=== PATIENT | male | born 1995 | race Caucasian/White ===

== ENCOUNTER 2019-09-02 12:39 | Emergency (ER) | payer OTHER, SELFPAY ==
--- NOTE | 2019-09-02 12:49 | ED.URI ---
HPI - URI/Sore Throat General Chief Complaint: Upper Respiratory Infection Stated Complaint: sore throat/cough/congestion/runny nose Time Seen by Provider: 09/02/19 13:22 Source: patient and RN notes reviewed Mode of arrival: ambulatory Limitations: no limitations History of Present Illness HPI Narrative: 24-year-old male presents with concern for 1 week history of sore throat, swollen lymph nodes, body chills, dry cough, sinus pressure, sinus drainage, sinus pain. Denies take any [id number] medications. MD elicited complaint: cough and nasal congestion Related Data Home Medications Medication Instructions Recorded Confirmed sertraline 100 mg PO DAILY 05/16/19 09/02/19 diltiazem HCl 120 mg PO DAILY 09/02/19 09/02/19 Allergies Allergy/AdvReac Type Severity Reaction Status Date / Time No Known Allergies Allergy Verified 09/02/19 13:00 Review of Systems Review of Systems: Narrative: CONSTITUTIONAL: Reports malaise, chills, sweats, fatigue, or tactile fever. EYES: Denies visual changes, redness, or discharge. ENT: Reports rhinorrhea, congestion, sinus pain, and sore throat. CARDIOVASCULAR: Denies chest pain, palpitations, or edema. RESPIRATORY: Reports cough. Denies dyspnea. GASTROINTESTINAL: Denies abdominal pain, nausea, vomiting, diarrhea SKIN: Denies rash or itching. MUSCULOSKELETAL: Reports myalgia. NEUROLOGIC: Denies headache. All systems reviewed & are unremarkable except as noted in HPI and below PMFSH Comments At time of signature, agree with nursing past medical, surgical, social and family history. There is no relevant family history pertinent to the presenting complaint Exam Narrative: Exam Narrative: GENERAL: Well-appearing, well-nourished, and in no acute distress. HEAD: Normocephalic EYES: PERRLA, conjunctivae clear ENT: Nares clear, turbinates edematous and erythematous, sinus tenderness. Mucous membranes moist. TM pearly marshall with dull light reflex bilaterally; no tragal tenderness. Oropharynx mildly erythematous without lesions. Tonsils not enlarged and without exudate, no drooling, no hoarseness, no trismus, uvula midline. NECK: Supple. No lymphadenopathy CHEST: Clear to auscultation, breath sounds equal. No wheezing, rhonchi, rales, or stridor. No respiratory distress, speaks in full sentences. HEART: Regular rate and rhythm. No murmur heard. SKIN: Warm, dry, no rash. NEURO: Alert and oriented x3. PSYCH: Normal mood and affect Course Course Emergency Course: Patient is aware of diagnosis, understands and agrees to treatment plan. Anticipatory guidance given. Patient agrees to follow-up as directed and is aware of reasons to seek care at the emergency department. Portions of this record may have been created with voice recognition software Vital Signs Vital signs: Vital Signs Temperature 98.9 F 09/02/19 12:53 Pulse Rate 96 09/02/19 12:53 Respiratory Rate 18 09/02/19 12:53 Blood Pressure 139/77 09/02/19 12:53 Pulse Oximetry 99 09/02/19 12:53 Temperature 98.9 F 09/02/19 12:53 Pulse Rate 96 09/02/19 12:53 Respiratory Rate 18 09/02/19 12:53 Blood Pressure 139/77 09/02/19 12:53 Pulse Oximetry 99 09/02/19 12:53 Reviewed. Pt has been instructed to follow up with his primary care provider within the next week regarding his elevated blood pressure today. MDM - URI/Sore Throat MDM Narrative Medical decision making narrative: Differential diagnosis considered: Strep pharyngitis, allergic rhinitis, upper respiratory tract infection, sinusitis, rhinosinusitis, nasopharyngitis. viral pharyngitis, otitis media, otitis externa, pneumonia, bronchitis, viral cough syndrome, viral syndrome, and influenza. Exam findings show no acute concerns or changes; patient is non-toxic appearing and is in no distress. Patient is appropriate for outpatient treatment and follow-up. Lab Data Attestation: I reviewed the patient's lab results. Labs: Influenza A Screen N
[2019-09-02 12:53] VITALS: BP 139/77; PULSE 96; RESP 18; TEMP 37.2; O2SAT 99
== END 2019-09-02 13:38 | disposition home or self-care (01) ==
PROVIDERS: Emergency Provider Nurse Practitioner
DX: J32.9 Chronic sinusitis, unspecified (principal); J40 Bronchitis, not specified as acute or chronic; I10 Essential (primary) hypertension; F41.9 Anxiety disorder, unspecified; F32.9 Major depressive disorder, single episode, unspecified
CPT/HCPCS: 87081; 87804; 87880; 99213; G0463

== ENCOUNTER → 2019-09-21 09:48 | Outpatient (CLI) | payer OTHER, SELFPAY ==
--- NOTE | ~2019-09-21 | MR_ITS ---
EXAMINATION: MR brain/brain stem wo con DATE: 09/21/2019 10:54 INDICATION: Headache. TECHNIQUE: Magnetic resonance imaging (MRI) of the brain and brainstem was performed without intraven ous contrast. Sequences included sagittal and axial T1-weighted FSE, axial diffusion-weighted FS EPI, axial T2*-weighted GRE, axial T2-weighted FLAIR Propeller, and axial T2-weighted Propeller. Apparent diffusion coefficient (ADC) maps were created. COMPARISON: None. FINDINGS: There is no intracranial hemorrhage, acute infarction, or abnormal intracranial mass lesion . The ventricles are normal in size. There are mucous retention cysts in the maxillary sinuses. The m astoid air cells are normal. The orbits are normal. IMPRESSION: 1. Normal brain. Reviewed, dictated and finalized at location A. IMPRESSION: 1. Normal brain.
== END ==
PROVIDERS: PCP Emergency Medicine; Visit Provider Emergency Medicine
DX: R51 Headache (principal)
CPT/HCPCS: 70551

== ENCOUNTER 2020-01-09 10:51 | Outpatient (CLI) | payer OTHER, SELFPAY ==
--- NOTE | ~2020-01-09 | CT_ITS ---
EXAMINATION: CTA abdomen pelvis DATE: 01/09/2020 12:03 INDICATION: Other male erectile dysfunction TECHNIQUE: Computed tomographic angiography (CTA) of the abdomen and pelvis was performed without and with 100 mL Omnipaque-350 intravenous contrast. Maximum intensity projection 3D-reconstructions of t he aorta and other arteries were constructed by the technologist on a separate workstation. The dose- length product (DLP) was 2774.27 mGy-cm. Automated exposure control and iterative reconstruction tech nique were employed. COMPARISON: None. FINDINGS: The lung bases are clear. The heart size is normal. The liver is diffusely low in attenuation when compared with the spleen, consistent with hepatic stea tosis. The spleen, pancreas, gallbladder, and adrenal glands are normal. The kidneys are unremarkable . No pathologically enlarged abdominal or pelvic lymph nodes are identified. There is no free intrape ritoneal gas or evidence of bowel obstruction. The appendix is normal. The visualized osseous structu res are unremarkable. The aorta is normal without aneurysm or dissection. The celiac axis, superior mesenteric artery, and inferior mesenteric artery are normal. There are three right and one left renal arteries. The bilater al common iliac arteries, external iliac arteries, and internal iliac arteries are normal in appearan ce. The bilateral internal pudendal arteries are normal. The bulbous urethral arteries appear normal. The dorsal penile and cavernosal arteries are not definitely identified. IMPRESSION: 1. No CT correlate for the patient's symptoms. Dorsal penile and cavernosal arteries not definitely i dentified. Reviewed, dictated and finalized at location A. IMPRESSION: 1. No CT correlate for the patient's symptoms. Dorsal penile and cavernosal art eries not definitely identified.
[2020-01-09 11:58] LABS: Estimated Glomerular Filt Rate > 60
== END 2020-01-09 10:52 | disposition home or self-care (01) ==
PROVIDERS: PCP Emergency Medicine; Visit Provider Urology
DX: N52.8 Other male erectile dysfunction (principal)
CPT/HCPCS: 36415; 74174; Q9967

== ENCOUNTER 2020-04-05 09:27 | Emergency (ER) | payer OTHER, SELFPAY ==
--- NOTE | 2020-04-05 09:33 | ED.SKABFB ---
HPI - Skin/Abscess/Foreign Bdy General Chief complaint: Skin/Abscess/Foreign Body Stated complaint: rash Time Seen by Provider: 04/05/20 09:34 Source: patient and RN notes reviewed Mode of arrival: ambulatory Limitations: no limitations History of Present Illness HPI narrative: 24-year-old male who presents to [facility] with complaints of rash to groin region, left forearm, and above right eye in brow area. Patient states that he was in the [place] helping a friend and he developed this rash starting 4 days ago which is red vesicular in linear streaks with some clear fluid noted and very pruritic. Patient states that he has had previous history of poison derek dermatitis and usually has to get shot to clear it up. patient denies any difficulty with swallowing or any shortness of breath. Patient states that he has used derek dry and bleach to rash, has not taken any Benadryl for the itching. MD complaint: rash Onset (ago): day(s) (4) Tetanus up to date: yes Location: generalized Severity: moderate Severity scale (1-10): 6 Quality: burning and pruritic Pain Consistency: intermittent Relieving factors: none Exacerbating factors: movement Context: other (in [place]) Associated symptoms: itching Treatments prior to arrival: other (bleach and derek dry OTC) Related Data Home Medications Medication Instructions Recorded Confirmed sertraline 100 mg PO DAILY 04/05/20 04/05/20 Allergies Allergy/AdvReac Type Severity Reaction Status Date / Time No Known Allergies Allergy Verified 04/05/20 09:38 Review of Systems Review of Systems: Narrative: CONSTITUTIONAL: Denies fever, chills, or sweats. EYES: Denies visual changes, redness, or discharge. ENT: Denies rhinorrhea, congestion, sore throat, or otalgia. CARDIOVASCULAR: Denies chest pain, palpitations, or edema. RESPIRATORY: Denies cough or dyspnea. GASTROINTESTINAL: Denies abdominal pain, nausea, vomiting, or diarrhea. GENITOURINARY: Denies dysuria or hematuria. SKIN: Positive for rash and itching to groin and left forearm and right eye brow area. MUSCULOSKELETAL: Denies back pain, joint pain, or myalgia. NEUROLOGIC: Denies headache, numbness, or weakness. PSYCHIATRIC: Positive history anxiety or depression. All systems reviewed & are unremarkable except as noted in HPI and below PMFSH Past Medical History Medical History (Updated 04/05/20 @ 09:58 by Breanna Paredes NP) Anxiety and depression Hypertension Surgical History Surgical History (Updated 04/05/20 @ 09:59 by Breanna Paredes NP) History of surgical removal of pilonidal cyst Family History Family History (Updated 04/05/20 @ 10:23 by Breanna Paredes NP) Other Hypertension Social History Social History (Updated 04/05/20 @ 10:01 by Breanna Paredes NP) Smoking status: Never smoker Alcohol intake: current Substance use: never Living arrangements: with family Gender identity (if verbalized by the patient): Male Comments At time of signature, agree with nursing past medical, surgical, social history. There is no relevant family history pertinent to the presenting complaint Exam Narrative: Exam Narrative: GENERAL: Well-appearing, well-nourished, and in no acute distress. HEAD: Normocephalic, atraumatic. EYES: PERRLA and EOMI. small area of redness with vesicle in brow line above right eye ENT: Nares clear, no rhinorrhea or epistaxis. Mucous membranes moist.TM's normal with good light reflex, throat pink with no swelling or tonsil enlargement. NECK: Supple. no lymphadenopathy CHEST: Clear to auscultation. No respiratory distress.SAO2 99% on room air HEART: Regular rate and rhythm. No murmur heard. Normal peripheral pulses. ABDOMEN: Soft, nontender, nondistended, normal active bowel sounds. EXTREMITIES: Normal range of motion. No edema. SKIN: Warm, dry, pruritic red vesicular rash noted to groin region, left forearm and also above right eye in brow area after being in [place] recently. some clear fl
[2020-04-05 09:35] VITALS: BP 144/70; PULSE 91; RESP 16; TEMP 36.3; O2SAT 99
[2020-04-05] MEDS: methylPREDNISolone ACETATE 80 MG/ML VIAL IM (09:54)
== END 2020-04-05 10:09 | disposition home or self-care (01) ==
PROVIDERS: Emergency Provider Registered Nurse; PCP Emergency Medicine
DX: L23.7 Allergic contact dermatitis due to plants, except food (principal); F41.9 Anxiety disorder, unspecified; F32.9 Major depressive disorder, single episode, unspecified; I10 Essential (primary) hypertension
CPT/HCPCS: 96372; 99213; G0463; J1040

== ENCOUNTER 2020-04-08 16:55 | Emergency (ER) | payer OTHER, SELFPAY ==
--- NOTE | 2020-04-08 16:56 | ED.URI ---
HPI - URI/Sore Throat General Chief Complaint: Upper Respiratory Infection Stated Complaint: cough/mucus/lt ear pain Time Seen by Provider: 04/08/20 16:56 Source: patient and RN notes reviewed History of Present Illness HPI Narrative: Patient is a 24-year-old male who presents the urgent care with complaints of productive brown cough/mucus, left ear pain, and rhinorrhea. Patient states it started approximately 2 days ago and he has been taking Claritin and has taken 1 dose of Tylenol. Patient denies of any known fever, nausea, vomiting, sinus pressure or pain. States that he has had 2 bloody noses in the past 2 days but that is typical for his normal sinus issues . Patient denies of any other acute complaints. No acute distress noted. Patient aware of the plan of care. Some parts of this dictation were generated by voice recognition software and may contain typographical and/or grammatical inaccuracies. Related Data Home Medications Medication Instructions Recorded Confirmed sertraline 100 mg PO DAILY 04/05/20 04/08/20 Allergies Allergy/AdvReac Type Severity Reaction Status Date / Time No Known Allergies Allergy Verified 04/08/20 17:02 Review of Systems Review of Systems: Narrative: CONSTITUTIONAL: Denies fever, chills, or sweats. EYES: Denies visual changes, redness, or discharge. ENT: Reports of bloody noses, rhinorrhea, left otalgia CARDIOVASCULAR: Denies chest pain, palpitations, or edema. RESPIRATORY: Reports a productive brown cough without dyspnea GASTROINTESTINAL: Denies abdominal pain, nausea, vomiting, or diarrhea. GENITOURINARY: Denies dysuria or hematuria. SKIN: Denies rash or itching. MUSCULOSKELETAL: Denies back pain, joint pain, or myalgia. NEUROLOGIC: Denies headache, numbness, or weakness. All other systems reviewed are negative, except as documented in HPI. [facility] Past Medical History Medical History (Updated 04/08/20 @ 17:07 by LYNDSEY Valenzuela) Anxiety and depression Hypertension Surgical History Surgical History (Updated 04/05/20 @ 09:59 by Breanna Paredes NP) History of surgical removal of pilonidal cyst Family History Family History (Updated 04/05/20 @ 10:23 by Breanna Paredes NP) Other Hypertension Social History Social History (Updated 04/05/20 @ 10:01 by Breanna Praedes NP) Smoking status: Never smoker Alcohol intake: current Substance use: never Gender identity (if verbalized by the patient): Male Comments At the time of my signature, I reviewed and agree with the nursing past medical, surgical, social, and family history. There is no relevant family history pertinent to the patient complaint. Exam Narrative: Exam Narrative: GENERAL: This is a well-nourished, well-developed patient, in no apparent distress. HEAD: normocephalic, atraumatic. EYES: PERRL. Sclera clear/white. Vision is grossly intact. EARS: External ears normal, auditory canals clear and without drainage, TMs normal without perforation. Hearing grossly intact. NOSE: External nose normal with no obvious nasal discharge, nares without redness, no rhinorrhea. THROAT: Mucous membranes moist, posterior pharynx clear. Mild postnasal drainage NECK: Neck supple CARDIOVASCULAR: Regular rate and rhythm without murmurs, gallops, or rubs. RESPIRATORY: Clear to auscultation. Breath sounds equal bilaterally. No wheezes, rales, or rhonchi. GASTROINTESTINAL: Abdomen soft, non-tender, nondistended. Bowel sounds are active. No hepato-splenomegaly, or palpable masses. No guarding. SKIN: 8 x 8cm irregular erythemic dermatitis noted to the left antecubital fossa. intact with no suspicious lesions or rash, good texture and turgor. NEURO: awake, alert, and oriented to person, place and time. There were no obvious focal neurologic abnormalities. EXTREMITIES: No clubbing, cyanosis, or edema. Course Vital Signs Vital signs: Vital Signs Temperature 96.8 F L 04/08/20 17:00 Pulse Rate 113 H
[2020-04-08 17:00] VITALS: BP 163/105; PULSE 113; RESP 16; TEMP 36; O2SAT 99
== END 2020-04-08 17:13 | disposition home or self-care (01) ==
PROVIDERS: Emergency Provider Nurse Practitioner Family; PCP Emergency Medicine
DX: J00 Acute nasopharyngitis [common cold] (principal); J01.90 Acute sinusitis, unspecified; I10 Essential (primary) hypertension; F41.9 Anxiety disorder, unspecified; F32.9 Major depressive disorder, single episode, unspecified
CPT/HCPCS: 99213; G0463

== ENCOUNTER 2020-12-14 19:36 | Emergency (ER) | payer OTHER, SELFPAY ==
--- NOTE | 2020-12-14 19:40 | ED.GENADULT ---
HPI - General Adult General Chief complaint: Upper Respiratory Infection Stated complaint: cough/mucus/swollen glands Time Seen by Provider: 12/14/20 19:40 Source: patient Mode of arrival: ambulatory Limitations: no limitations History of Present Illness HPI narrative: 25-year-old male patient presents to the [facility] with complaints of upper respiratory infection symptoms for the past 5 days. Patient states he has been feeling very fatigued, coughing up brown sputum in the morning, having swollen lymph nodes that are very tender to the right side of his neck and has been feeling feverish but does not know if he has had a fever. Patient states he has been waking up in the morning drenched in sweat and having night sweats. Patient does have history of hypertension and states that he has been monitored for tachycardia before in the past. Patient states he did get his first Covid vaccine but has not been a full 2 weeks yet. Patient states he does take blood pressure medications and states he just saw his primary doctor last week and they refilled his medications on but he has not yet picked them up. Denies chest pain, shortness of breath, nausea vomiting or diarrhea. Related Data Home Medications Medication Instructions Recorded Confirmed sertraline mg 12/14/20 Allergies Allergy/AdvReac Type Severity Reaction Status Date / Time No Known Allergies Allergy Unverified 04/30/20 14:15 Review of Systems Review of Systems: Narrative: CONSTITUTIONAL: Denies fever, positive chills, and sweats. EYES: Denies visual changes, redness, or discharge. ENT: Denies rhinorrhea, congestion, sore throat, or otalgia. CARDIOVASCULAR: Denies chest pain, palpitations, or edema. RESPIRATORY: Positive cough, denies dyspnea. GASTROINTESTINAL: Denies abdominal pain, nausea, vomiting, or diarrhea. GENITOURINARY: Denies dysuria or hematuria. SKIN: Denies rash or itching. MUSCULOSKELETAL: Denies back pain, joint pain, or myalgia. NEUROLOGIC: Denies headache, numbness, or weakness. Positive fatigue PSYCHIATRIC: Denies anxiety or depression. [facility] Past Medical History Medical History Anxiety and depression Hypertension Surgical History Surgical History History of surgical removal of pilonidal cyst Family History Family History Other Hypertension Comments At the time of my signature I agree with nursing past medical history, surgical, social, and family history. There is no relevant family history pertinent to the presenting complaint. Exam Narrative: Exam Narrative: GENERAL: ill-appearing, well-nourished, and in no acute distress. HEAD: Normocephalic, atraumatic. EYES: PERRLA and EOMI. ENT: Nares clear, no rhinorrhea or epistaxis. Mucous membranes moist. Posterior pharynx with bilateral tonsil enlargement, erythema and exudates noted to bilateral sides as well as postnasal drip present. Bilateral TMs are clear with no erythema or foreign bodies in the canal. NECK: Supple. Patient has lymphadenopathy with tenderness noted to the left lateral lymph nodes of the neck. Patient does have pain when turning his head towards the left and right sides. CHEST: Clear to auscultation. No respiratory distress. HEART: Heart rate is tachycardic at this time. No murmur heard. Normal peripheral pulses. ABDOMEN: Soft, nontender, nondistended, normal active bowel sounds. EXTREMITIES: Normal range of motion. No edema. SKIN: Warm, diaphoretic, no rash. NEURO: No focal deficits. Alert and oriented x3. Course Reevaluation(s) Reevaluation #1: After discussing issues with his blood pressure patient did state that he has been off his blood pressure medication now for over a year. Patient states that he did see his primary doctor last week and was put on diltiazem for his blood pressure whtejinder
[2020-12-14 19:45] VITALS: BP 149/123; PULSE 128; RESP 16; TEMP 38; O2SAT 99
[2020-12-14 19:47] VITALS: BP 149/123; PULSE 128; RESP 16; TEMP 38; O2SAT 99
--- NOTE | 2020-12-14 20:06 | PC.NURSE ---
Unable to scan tylonol. Was ordered as a scheduled med by provider. She is unable to change the order.
[2020-12-14 20:25] VITALS: BP 149/97
[2020-12-14 20:29] VITALS: TEMP 37.6
[2020-12-16 18:16] LABS: SARS-CoV-2 RNA PCR Negative
== END 2020-12-14 20:33 | disposition home or self-care (01) ==
PROVIDERS: Emergency Provider Nurse Practitioner Family
DX: J06.9 Acute upper respiratory infection, unspecified (principal); Z20.822 Contact with and (suspected) exposure to COVID-19; I10 Essential (primary) hypertension
CPT/HCPCS: 36416; 86308; 87081; 87426; 87804; 87880; 99213; C9803; G0463; U0003; U0005

== ENCOUNTER 2020-12-15 01:57 | Emergency (ER) | payer OTHER, SELFPAY ==
[2020-12-15] VITALS (8 sets, daily range): BP systolic 133–163; BP diastolic 70–108; PULSE 95–127; RESP 15–22; TEMP 37.3; O2SAT 96–98
--- NOTE | ~2020-12-15 | CT_ITS ---
EXAMINATION: CT soft tissue neck w con DATE: 12/15/2020 03:12 INDICATION: Neck swelling and pain TECHNIQUE: Computed tomography (CT) of the neck was performed with 75 mL Omnipaque-350 intravenous co ntrast. The dose-length product was 603.03 mGy-cm.. Automated exposure control and iterative reconstr uction technique were employed. COMPARISON: No prior studies for comparison. FINDINGS: There is posterior nasal adenoidal hypertrophy. Moderate enlargement of the tonsils and lesley noids. There are benign left tonsillar calcifications. Moderate narrowing of the upper oral pharyngea l airway. No peritonsillar abscess. Epiglottis intact. Trachea and upper lung alex are unremarkable . No retropharyngeal fluid or gas. There are bilateral small and enlarged jugulodigastric chain lymph nodes with dominant enlarged lymph nodes at the angle of mandible on the right measuring 2.6 cm. Tra ce fluid seen along the lower margin of the sternocleidomastoid muscle also extending into the Submandibular space. No acute osseous abnormality. No significant vascular abnormality. Intracranial structures are unremarkable. There are mucous retention cysts in the maxillary sinuses. IMPRESSION: 1. Enlarged right jugulodigastric chain lymph node measuring 2.6 cm, most likely reactive. 2: Enlargement of the tonsils and adenoids with moderate narrowing of the oropharyngeal airway, consi stent with infectious/inflammatory process. No peritonsillar abscess. Reviewed, dictated and finalized at location A. IMPRESSION: 1. Enlarged right jugulodigastric chain lymph node measuring 2.6 cm, most likel y reactive. 2: Enlargement of the tonsils and adenoids with moderate narrowing of the oroph aryngeal airway, consistent with infectious/inflammatory process. No peritonsil lar abscess.
--- NOTE | 2020-12-15 02:10 | ED.FEVER ---
HPI - Fever General Chief Complaint: Unspecified Stated Complaint: swollen lymph nodes, fever Time Seen by Provider: 12/15/20 02:10 History of Present Illness HPI Narrative: 25 yo male w/ h/o sinusitis presents to the ED for fever and neck pain. He has had pain in the left side of the neck for a few days. Developed swollen fever and lymph nodes on that side of the neck today. Pain is worse with swallowing. Seen at urgent care today and had negative strep, mono, and COVID testing. Related Data Home Medications Medication Instructions Recorded Confirmed sertraline 100 mg PO DAILY 05/16/19 09/02/19 Allergies Allergy/AdvReac Type Severity Reaction Status Date / Time No Known Allergies Allergy Verified 12/15/20 02:17 Review of Systems Review of Systems: All systems reviewed & are unremarkable except as noted in HPI and below Eyes: Eyes: Denies change in vision ENT: Denies dizziness and Reports nasal congestion Cardiovascular: Cardiovascular: Denies chest pain Respiratory: Respiratory: Denies cough and Denies dyspnea Gastrointestinal: Gastrointestinal: Denies abdominal pain and Denies nausea Neurologic: Denies dizziness and Denies weakness [facility] Past Medical History Medical History Anxiety and depression Anxiety and depression Hypertension Hypertension Surgical History Surgical History History of surgical removal of pilonidal cyst History of surgical removal of pilonidal cyst Social History Social History Smoking status: Never smoker Alcohol intake: current Substance use: never Gender identity (if verbalized by the patient): Male Exam Const: General: healthy appearing, no acute distress and alert Orientation/consciousness: patient oriented x3 HENMT: Head: normal to inspection Ears: TM's normal bilaterally Face and sinus: sinus tenderness maxillary Mouth: Yes Normal oral and palatal mucosa present Teeth and gingiva: dentition normal Throat: abnormal tonsil bilateral hypertrophy Eyes: Conjunctivae: conjunctivae normal Pupils: Equal, round and reactive pupils present EOM: EOMs intact bilaterally Neck: Neck: normal visual inspection and lymphadenopathy Other: right auricular, anterior cervical Resp: Effort & Inspection: normal respiratory effort Auscultation: clear to auscultation bilaterally, no rales, no rhonchi and no wheezes Cardio: Jugular venous distension: no JVD Rate: regular rate Rhythm: regular rhythm Heart sounds: no murmurs Skin: General skin exam: normal color Neuro: General: patient oriented x3 and moves all extremities Speech: normal speech Extrem: General: no edema Psych: Appearance: well kempt Affect: normal affect Course Vital Signs Vital signs: Vital Signs Temperature 37.3 C 12/15/20 02:10 Pulse Rate 127 H 12/15/20 02:10 Respiratory Rate 20 12/15/20 02:10 Blood Pressure 163/108 H 12/15/20 02:10 Pulse Oximetry 96 12/15/20 02:10 Temperature 37.3 C 12/15/20 02:10 Pulse Rate 95 12/15/20 05:55 Respiratory Rate 22 H 12/15/20 05:55 Blood Pressure 159/92 H 12/15/20 05:55 Pulse Oximetry 97 12/15/20 05:55 MDM - Fever MDM Narrative Medical decision making narrative: History of recurrent sinusitis combined with current symptoms and previous negative work-up suggests that this could be a source for his symptoms. Medical Records Attestation: I reviewed the patient's medical records. Lab Data Attestation: I reviewed the patient's lab results. Result diagrams: 12/15/20 02:26 12/15/20 02:26 Labs: Lab Results 12/15/20 12/15/20 Range/Units 02:26 02:26 WBC 12.7 H (4.5-10.0) K/mm3 RBC 5.42 (4.6-6.20) M/mm3 Hgb 15.1 (14.0-18.0) g/dL Hct 46.3 (42.0-52.0) % MCV 85.4 (80-100) fl MCH 27.9 (26-34) pg MCHC
[2020-12-15 02:42] LABS: Anion Gap 11 mmol/L (8-16); Blood Urea Nitrogen 17 mg/dL (9-20); Calcium 9.3 mg/dL (8.4-10.2); Carbon Dioxide 26 mmol/L (22-30); Chloride 103 mmol/L (98-107); Estimated CRCL calculation 107 ml/min; Estimated Glomerular Filt Rate > 60; Glucose 112 mg/dL (75-110); Potassium 3.9 mmol/L (3.4-5.0); Sodium 140 mmol/L (137-145)
[2020-12-15 02:43] LABS: Basophils Absolute Auto 0.1 K/mm3 (0.0-0.1); Basophils Percent Auto 0.5 % (0.2-1.2); Eosinophils Absolute Auto 0.1 K/mm3 (0-0.3); Eosinophils Percent Auto 0.6 % (0-4.4); Hematocrit 46.3 % (42.0-52.0); Hemoglobin 15.1 g/dL (14.0-18.0); Immature Granulocyte Absolute 0.12 K/mm3 (0.00-0.031); Immature Granulocyte Percent A 0.9 % (0-0.5); Lymphocytes Absolute Auto 2.13 K/mm3 (0.9-3.2); Lymphocytes Percent Auto 16.7 % (18.3-44.2); Mean Corpuscular HGB Conc 32.6 g/dl (32-36); Mean Corpuscular Hemoglobin 27.9 pg (26-34); Mean Corpuscular Volume 85.4 fl (80-100); Mean Platelet Volume 9.2 fl (7.4-10.4); Monocytes Absolute Auto 1.2 K/mm3 (0.1-0.6); Monocytes Percent Auto 9.2 % (2.6-8.5); Neutrophils Absolute Auto 9.2 K/mm3 (1.3-6.7); Neutrophils Percent Auto 72.1 % (45.5-73.1); Platelet Count Result 299 k/mm3 (150-375); Red Blood Count 5.42 M/mm3 (4.6-6.20); Red Cell Distribution Width 12.6 % (11.5-14.5); White Blood Count 12.7 K/mm3 (4.5-10.0)
[2020-12-15] MEDS: SODIUM CHLORIDE 0.9% IV 1,000 ML 999 ML IV CONT (02:50)
[2020-12-15] MEDS: DEXAMETHASONE SOD PHOS INJ 4 MG/ML VIAL 10 MG IV PUSH (02:52)
--- NOTE | 2020-12-15 02:58 | PC.NURSE ---
Pt to imaging at this time.
[2020-12-15] MEDS: KETOROLAC 30 MG/ML VIAL (*BKC) IV PUSH (03:18)
[2020-12-15] MEDS: AMPICILLIN SULB 3 GM/NS 100 ML 3 GM/100 ML VIAL IVPB (03:21)
== END 2020-12-15 05:57 | disposition home or self-care (01) ==
PROVIDERS: Emergency Provider Emergency Medicine
DX: J32.9 Chronic sinusitis, unspecified (principal); I10 Essential (primary) hypertension; F41.9 Anxiety disorder, unspecified; F32.9 Major depressive disorder, single episode, unspecified
CPT/HCPCS: 36415; 70491; 80048; 85025; 96361; 96365; 96375; 99284; J0295; J1100; J1885; J7030; Q9967

== ENCOUNTER 2021-04-28 12:34 | Emergency (ER) | payer OTHER, SELFPAY ==
--- NOTE | 2021-04-28 12:43 | ED.HA ---
HPI - Headache General Chief Complaint: Headache Stated Complaint: parks/eye pain Time Seen by Provider: 04/28/21 12:35 Source: patient, RN notes reviewed and old records reviewed Mode of arrival: ambulatory Limitations: no limitations History of Present Illness HPI Narrative: 25-year-old male presents to the [facility] with the worst headache of my life. Patient states that the headache on the right side started last night. Has taken Tylenol. Has episodes of nausea and vomiting today. States that changing of positions makes the headache worse describes it as a sharp throbbing pain from his eyeball to midline t top of headl. Also states intermittent blurry vision, right side only. No loss of vision. Denies any trauma. no neurologic deficits. No sinus tenderness. Denies any sinus symptoms or allergy symptoms. No sore throats. Has history of anxiety depression and is currently medicated. MD elicited complaint: headache Related Data Home Medications Medication Instructions Recorded Confirmed sertraline 100 mg PO DAILY 05/16/19 09/02/19 Allergies Allergy/AdvReac Type Severity Reaction Status Date / Time No Known Allergies Allergy Verified 12/15/20 02:17 Review of Systems Review of Systems: All systems reviewed & are unremarkable except as noted in HPI and below Constitutional: Constitutional: Reports no additional constitutional complaints, Denies chills and Denies fever(s) Eyes: Eyes: Reports as per HPI and Reports change in vision (Blurry right eye) ENT: Reports system reviewed and no additional complaints, except as documented, Denies dysphagia, Denies vertigo, Denies dizziness, Denies nasal congestion and Denies sore throat Respiratory: Respiratory: Reports no additional respiratory complaints, Denies cough, Denies dyspnea and Denies wheezing Gastrointestinal: Gastrointestinal: Reports as per HPI, Denies abdominal pain, Reports nausea and Reports vomiting Musculoskeletal: Musculoskeletal: Reports no additional musculoskeletal complaints Integumentary/Breasts: Skin/Breast: Reports system reviewed and no additional complaints, except as docu Neurologic: Reports as per HPI, Denies confusion, Denies vertigo, Denies dizziness, Denies syncope, Reports headache(s), Denies focal weakness, Denies numbness and Denies weakness Psychiatric: Psychiatric: Reports no additional psychiatric complaints Allergic/Immunologic: Allergic/Immunologic: Reports no additional allergic/immunologic complaints PMFSH Past Medical History Medical History Anxiety and depression Anxiety and depression Hypertension Hypertension Surgical History Surgical History History of surgical removal of pilonidal cyst History of surgical removal of pilonidal cyst Social History Social History Smoking status: Never smoker Alcohol intake: current Substance use: never Gender identity (if verbalized by the patient): Male Comments At the time of my signature, I reviewed and agree with the nursing past medical, surgical, social, and family history. There is no relevant family history pertinent to the patient complaint. Exam Const: General: healthy appearing, no acute distress and alert Nutritional Appearance: well nourished Orientation/consciousness: patient oriented x3 Limitations: no limitations HENMT: Head: normal to inspection Ears: external ears normal, TM's normal bilaterally and EAC's normal Eyes: Conjunctivae: conjunctivae normal Pupils: Equal, round and reactive pupils present Direct Ophthalmoscopy: no photophobia Neck: Neck: normal visual inspection, no lymphadenopathy and no meningeal signs Chest: Chest palpation & inspection: normal inspection of the chest Resp: Effort & Inspection: normal respiratory effort and no use of accessory muscles Auscultation: clear to auscultatio
[2021-04-28 12:44] VITALS: BP 176/114; PULSE 99; RESP 16; TEMP 36.1; O2SAT 99
== END 2021-04-28 13:01 | disposition short-term general hospital (02) ==
PROVIDERS: Emergency Provider Nurse Practitioner
DX: R51.9 Headache, unspecified (principal); I10 Essential (primary) hypertension; F41.9 Anxiety disorder, unspecified; F32.9 Major depressive disorder, single episode, unspecified
CPT/HCPCS: 99213; G0463

== ENCOUNTER 2021-04-28 13:16 | Emergency (ER) | payer OTHER, SELFPAY ==
--- NOTE | ~2021-04-28 | CT_ITS ---
EXAMINATION: CT brain wo con DATE: 04/28/2021 14:11 INDICATION: Headache. TECHNIQUE: Computed tomography (CT) of the head was performed without intravenous contrast. The dose- length product was 605.33 mGy-cm. Automated exposure control and iterative reconstruction technique w ere employed. COMPARISON: None FINDINGS: No acute intracranial hemorrhage, infarction, mass or mass effect. No ventriculomegaly or m idline shift. Basilar cisterns are patent. There are mucous retention cyst of the maxillary sinuses, partially visualized. Mastoids are pneumatized. No depressed skull fractures. IMPRESSION: 1. No acute intracranial abnormality. Reviewed, dictated and finalized at location [facility]
[2021-04-28 13:29] VITALS: BP 169/98; PULSE 94; RESP 16; TEMP 36.1; O2SAT 97
--- NOTE | 2021-04-28 13:59 | ECG_ITS ---
Measurements Intervals [place] Rate: 89 P: 52 VA: 154 QRS: 5 QRSD: 90 T: 11 QT: 368 QTc: 450 Interpretive Statements SINUS RHYTHM POSSIBLE LEFT ATRIAL ENLARGEMENT INCOMPLETE RIGHT BUNDLE BRANCH BLOCK BORDERLINE T WAVE ABNORMALITY- INFERIOR LEADS BASELINE WANDER- V3 BORDERLINE ECG Electronically Signed On 04-28-2021 14:47:17 SECURITY ASSISTANT by Kiran Coto D.O.
[2021-04-28 14:00] LABS: Add Urine Microscopic? NO; Appearance Urine Clear (Clear); Bilirubin Urine Negative (Negative); Blood Urine Negative (Negative); Color Urine Yellow (Yellow); Glucose Urine UA Negative (Negative); Ketones Urine Negative (Negative); Leukocyte Esterase Ur Negative LEU/UL (Negative); Nitrate Urine Negative (Negative); Protein Urine Negative (Negative); Specific Grav Ur 1.023 (1.001-1.035); Urobilinogen Urine Negative mg/dL (<2.0)
--- NOTE | 2021-04-28 14:01 | ED.HA ---
HPI - Headache General Chief Complaint: Headache Stated Complaint: TYLER X1D Time Seen by Provider: 04/28/21 13:43 Source: patient and RN notes reviewed Mode of arrival: ambulatory Limitations: no limitations History of Present Illness HPI Narrative: This is a 25 year old male with history of hypertension who presents for evaluation of acute headache. He denies mild headache last night. He reports pain located to the top of his head and then he developed throbbing pain to his right eye. He went to sleep last night thinking the pain would resolve. This morning he woke up and he still continued to have pain. He reports he had nausea and blurred vision so he took Tylenol this morning and he went back to sleep. He woke up at a noon and his developed severe lightening pain . He also reports having emesis x 2. His headache was severe at that time but currently he rates his pain as 4/10. He denies history of migraines or headache. He denies blurred vision but he does have some light sensitivity. He denies associated neck pain, fever, chills, focal weakness, numbness or tingling. He was referred to [facility] for further evaluation. Related Data Home Medications Medication Instructions Recorded Confirmed sertraline 100 mg PO DAILY 05/16/19 04/28/21 Allergies Allergy/AdvReac Type Severity Reaction Status Date / Time No Known Allergies Allergy Verified 04/28/21 13:39 Review of Systems Review of Systems: All systems reviewed & are unremarkable except as noted in HPI and below PMFSH Past Medical History Medical History Anxiety and depression Anxiety and depression Hypertension Hypertension Surgical History Surgical History History of surgical removal of pilonidal cyst History of surgical removal of pilonidal cyst Social History Social History Smoking status: Never smoker Alcohol intake: current Substance use: never Gender identity (if verbalized by the patient): Male Exam Const: General: no acute distress and alert Orientation/consciousness: patient oriented x3 HENMT: Head: normocephalic and atraumatic General nose exam: Normal external nose present, Normal nares present and No nasal polyps present Face and sinus: normal facial exam, sinuses nontender and face symmetric Mouth: Yes Normal oral and palatal mucosa present, Yes lip normal, Yes oropharynx normal and Yes moist mucous membranes Throat: posterior oropharynx normal, tonsils normal and uvula midline Eyes: Pupils: Equal, round and reactive pupils present EOM: EOMs intact bilaterally Neck: Neck: normal visual inspection, no lymphadenopathy and no meningeal signs Chest: Chest palpation & inspection: normal inspection of the chest Resp: Effort & Inspection: normal respiratory effort and no retractions Auscultation: clear to auscultation bilaterally Cardio: Rate: regular rate Rhythm: regular rhythm Heart sounds: no murmurs GI: GI Palp: Yes Soft to palpation, No Tenderness to palpation present (GI) and No Guarding due to palpation present (GI) Auscultation: normal bowel sounds Neuro: General: patient oriented x3, moves all extremities, no meningeal signs, no focal motor deficits and CN's II-XI intact bilaterally Cranial nerves: Yes Nystagmus not present Speech: normal speech Gait exam (Neuro): Normal gait present Psych: Mental Status: mental status grossly normal Affect: normal affect Course Reevaluation(s) Reevaluation #1: PAtient reports that his headache has resolved after IVF, reglan and benadryl. His CT and labs were unremarkable. He does not meningeal signs. He will start taking his blood pressure medication and follow up with pcp Date: 04/28/21 Time: 15:54 Vital Signs Vital signs: Vital Signs Temperature 97.0 F L 04/28/21 13:29 Pulse Rate 94 04/28
[2021-04-28] MEDS: SODIUM CHLORIDE 0.9% IV 1,000 ML 999 ML IV CONT (14:24)
[2021-04-28 14:25] LABS: Basophils Absolute Auto 0.1 K/mm3 (0.0-0.1); Basophils Percent Auto 0.6 % (0.2-1.2); Eosinophils Absolute Auto 0.2 K/mm3 (0-0.3); Eosinophils Percent Auto 1.8 % (0-4.4); Hematocrit 47.3 % (42.0-52.0); Hemoglobin 16.2 g/dL (14.0-18.0); Immature Granulocyte Percent A 1.1 % (0-0.5); Lymphocytes Percent Auto 22.7 % (18.3-44.2); Mean Corpuscular HGB Conc 34.2 g/dl (32-36); Mean Corpuscular Volume 84.8 fl (80-100); Mean Platelet Volume 9.2 fl (7.4-10.4); Monocytes Absolute Auto 0.6 K/mm3 (0.1-0.6); Monocytes Percent Auto 6.8 % (2.6-8.5); Neutrophils Absolute Auto 6.2 K/mm3 (1.3-6.7); Platelet Count Result 348 k/mm3 (150-375); Red Blood Count 5.58 M/mm3 (4.6-6.20); Red Cell Distribution Width 12.6 % (11.5-14.5); White Blood Count 9.3 K/mm3 (4.5-10.0)
[2021-04-28] MEDS: diphenhydrAMINE HCl INJ 50 MG/ML VIAL 25 MG IV PUSH (14:25)
[2021-04-28] MEDS: METOCLOPRAMIDE HCL INJ 10 MG/2 ML VIAL IV PUSH (14:25)
[2021-04-28 14:34] LABS: Partial Thromboplastin Time 24.8 SECONDS (22.3-36.8); Prothrombin Time 12.6 Seconds (11.1-14.7)
[2021-04-28 14:39] LABS: Alanine Aminotransferase 65 U/L (4-50); Albumin Level 4.7 g/dL (3.5-5.1); Alkaline Phosphatase 91 U/L (38-126); Anion Gap 13 mmol/L (8-16); Aspartate Amino Transferase 47 U/L (17-59); Bilirubin,Total 1.1 mg/dL (0.2-1.3); Blood Urea Nitrogen 16 mg/dL (9-20); Calcium 9.5 mg/dL (8.4-10.2); Carbon Dioxide 22 mmol/L (22-30); Chloride 103 mmol/L (98-107); Estimated CRCL calculation 147 ml/min; Estimated Glomerular Filt Rate > 60; Glucose 93 mg/dL (65-110); Potassium 4.1 mmol/L (3.4-5.0); Sodium 138 mmol/L (137-145)
[2021-04-28 16:04] VITALS: BP 127/80; PULSE 78; RESP 18; O2SAT 99
== END 2021-04-28 16:05 | disposition home or self-care (01) ==
PROVIDERS: Emergency Medicine; Emergency Provider General Practice
DX: R51.9 Headache, unspecified (principal); I10 Essential (primary) hypertension
CPT/HCPCS: 36415; 70450; 80053; 81003; 85025; 85610; 85730; 93005; 96361; 96365; 96375; 99284; J0131; J1200; J2765; J7030

== ENCOUNTER 2021-05-19 16:14 | Emergency (ER) | payer OTHER, SELFPAY ==
[2021-05-19 16:20] VITALS: BP 152/109; PULSE 105; RESP 16; TEMP 36.3; O2SAT 99
--- NOTE | 2021-05-19 17:22 | ED.SKABFB ---
HPI - Skin/Abscess/Foreign Bdy General Chief complaint: Skin/Abscess/Foreign Body Stated complaint: rash Source: patient and RN notes reviewed Limitations: no limitations History of Present Illness HPI narrative: The patient, previously healthy, presents with skin eruption. Patient states he has a 1 to 2-day worsening of nearly one month long history of intermittent pink, definitely itchy eruption on trunk and extremities. Patient states the eruption is migratory, raised,and pictures of rash seem to be urticarial; and he demonstrates some dermographism. Symptoms are mild, sometimes involve palate and lower neck, and persistent despite OTC preparations like Benadryl, and try to eliminate possible triggers. Patient advised to follow-up with specialist allergy or tack picker. Related Data Home Medications Medication Instructions Recorded Confirmed diltiazem HCl 120 mg PO DAILY 05/19/21 05/19/21 sertraline 100 mg PO DAILY 05/19/21 05/19/21 Allergies Allergy/AdvReac Type Severity Reaction Status Date / Time No Known Allergies Allergy Unverified 04/30/20 14:15 Review of Systems Review of Systems: General/Constitutional: No weight loss,fever Eyes: N0: Redness,discharge Ears/Nose/Throat: No: Epistaxis,ear discharge Respiratory: Denies: Hemoptysis Gastrointestinal: No Vomiting, Bleeding-rectal Skin: No Lumps, REPORTS eruption Neurologic: No Focal Weakness,Sz Hematologic: Denies: Petechiae/Purpura Psychiatric: No: Suicida ideationl All Other Systems: Reviewed and Negative [facility] Past Medical History Medical History Anxiety and depression Hypertension Surgical History Surgical History History of surgical removal of pilonidal cyst Family History Family History Other Hypertension Comments At time of signature, agree with nursing past medical, surgical, social and family history. There is no relevant family history pertinent to the presenting complaint Exam Narrative: General Appearance: Obese/well nourished, Normocephalic, Conjunctiva clear Ear: External ear normal Nose: Normal nose, Nare clear Mouth/Throat: Normal appearing, Supple Respiratory: Airway patent, No respiratory distress, CTA Musculoskeletal: Moves all extremities, Non tender Skin: Warm, Dry small, demonstrates dermographism; and isolated macular-papular rash of hair follicles Neurological: A&O x3 Psychiatric: Normal mood, Normal affect Course Vital Signs Vital signs: Vital Signs Temperature 97.4 F L 05/19/21 16:20 Pulse Rate 105 H 05/19/21 16:20 Respiratory Rate 16 05/19/21 16:20 Blood Pressure 152/109 H 05/19/21 16:20 Pulse Oximetry 99 05/19/21 16:20 Temperature 97.4 F L 05/19/21 16:20 Pulse Rate 105 H 05/19/21 16:20 Respiratory Rate 16 05/19/21 16:20 Blood Pressure 152/109 H 05/19/21 16:20 Pulse Oximetry 99 05/19/21 16:20 Discharge Plan Discharge Clinical Impression: Allergic dermatitis Patient Disposition: Home, Self-Care Condition: Stable Instructions: Antibiotic Form Additional Instructions: You may use/continue OTC daytime Zyrtec, with Benadryl OR Vistaril especially in the evenings; Consider elimination diet; tapering regular meds under your doctors guidance Prescriptions: New prednisone 20 mg tablet 60 mg PO DAILY Qty: 15 RF: 0 cephalexin 500 mg capsule 1,000 mg PO Q12H 5 Days Qty: 20 RF: 0 hydroxyzine pamoate [Vistaril] 25 mg capsule 25 mg PO HS Qty: 14 RF: 2 methylprednisolone [Medrol (Robb)] 4 mg tablets,dose pack See Rx Instructions .ROUTE .COMPLEX Qty: 21 RF: 0 No Action sertraline 100 mg tablet 100 mg PO DAILY RF: 0 diltiazem HCl 120 mg capsule,extended release 24hr 120 mg PO DAILY RF: 0 Follow-up/Referrals: UNKNOWN,DOCTOR [Primary Care Provider
[2021-05-21 02:32] LABS: SARS-CoV-2 RNA PCR Negative
== END 2021-05-19 17:36 | disposition home or self-care (01) ==
PROVIDERS: Emergency Provider Emergency Medicine
DX: L23.9 Allergic contact dermatitis, unspecified cause (principal); Z20.822 Contact with and (suspected) exposure to COVID-19; I10 Essential (primary) hypertension; F41.9 Anxiety disorder, unspecified; F32.A Depression, unspecified
CPT/HCPCS: 99213; C9803; G0463; U0003; U0005